=== PATIENT | male | born 1950 | race Caucasian/White ===

== ENCOUNTER → 2017-03-07 | Outpatient (CLI) | payer OTHER ==
[~2017-03-07] MED LIST: ASA CHILDREN'S81 MG PO; BENADRYL-DPS25 MG PO; CARAFATE DPS1 GM PO; CEPACOL SORE T1 EACH PO; CLARITIN-D 121 EACH PO; COLACE-DPS100 MG PO; COUMADIN7.5 MG PO; COZAAR100 MG PO; CRESTOR20 MG PO; DULCOLAX-DPS5 MG PO; FISH OIL 1,0001 EACH PO; FISH OIL PO; FLEXERIL-DPS10 MG PO; HYDROCODON-ACE1 EAC4 PO; IMDUR DPS30 MG PO; ISORDIL DPS30 MG PO; ISOSORBIDE PO; LASIX DPS20 MG PO; LASIX20 M1 PO; LOPRESSOR DPS50 MG PO; LOPRESSOR100 MG PO; LORTAB 7.5-3251 EACH PO; LOVENOX DP40 MG/0.4 SQ; MAALOX DPS30 ML PO; MELOXICAM7.5 MG PO; METOPROLOL TART25 MG PO; MILK OF MAGNESI10 ML PO; MULTIVITAMINS1 EAC1 PO; NITROSTAT0.4 MG SL; OMEGA-3 DPS1000 MG PO; OXY IR DPS5 MG PO; PROTONIX40 MG PO; SENOKOT S1 TAB PO; SURFAK DPS240 MG PO; TUMS DPS500 MG PO; TYLENOL DPS325 MG PO; ULTRAM DPS50 MG PO; ZOCOR DPS40 MG PO; ZOFRAN4 MG PO
== END | disposition home or self-care (01) ==
LOC: RAD.S 14:22
DX: R10.11 Right upper quadrant pain (principal); N20.0 Calculus of kidney; K31.89 Other diseases of stomach and duodenum

== ENCOUNTER 2017-03-09 20:00 | Observation (INO) | payer OTHER ==
[~2017-03-09] VITALS: Ht 175.3 cm; Wt 82.6 kg
--- NOTE | ~2017-03-09 | CO ---
ADMIT: 03/09/2017 RM/LOC: 629 [facility] MR#: [id number] 2620 [facility] [address] [place] [id number] LINDSAY OLSON [address] [place] [address] Consultation SEX: M AGE: 66 : 1950 DATE OF CONSULTATION: 03/10/2017 ATTENDING PHYSICIAN: Lindsay Jennings CONSULTING PHYSICIAN: Steffen Hannon MD ADDENDUM: This patient has complaints of epigastric pain that has been going on for about a week ago, it got increasingly severe. He has not really been taking anything that would cause ulcers or gastritis. He has been uncomfortable enough, so he presented to the ER and was admitted last night. No nausea or vomiting. He is eating and hungry. He did have a CT scan, which really did not show anything abnormal. I believe the ultrasound and HIDA scan looked normal also. On exam, his abdomen is quite tender in the epigastric region. He is not terribly distended. No guarding or rebound at this time. ASSESSMENT: Epigastric pain that radiates through into his back. PLAN: I have recommended proceeding with EGD. His INR today is 2.3, so we will wait for that to reverse. We might be able to scope in tomorrow versus Friday depending on what his INR ends up doing. I went through risks, benefits of the procedure with the patient. He understands and agrees to proceed. Steffen Hannon MD/ simone JOB #: [id number] CC: Lindsay Jennings, Attending Physician Lindsay Jennings, Family Physician
[~2017-03-09 20:00] MED LIST changes: -CARAFATE DPS1 GM PO; -CLARITIN-D 121 EACH PO; -COLACE-DPS100 MG PO; -HYDROCODON-ACE1 EAC4 PO; -ISORDIL DPS30 MG PO; -LASIX DPS20 MG PO; -METOPROLOL TART25 MG PO; -NITROSTAT0.4 MG SL; -OMEGA-3 DPS1000 MG PO; -PROTONIX40 MG PO; -ZOCOR DPS40 MG PO
--- NOTE | 2017-03-10 03:19 | ER ---
ADMIT: 03/09/2017 RM/LOC: 629 [facility] MR#: [id number] 2620 [facility] [address] [place], [place] [address] KENNY OLSON [address] [place] [address] Emergency Room Report SEX: M AGE: 66 : 1950 DATE: 03/09/2017 CHIEF COMPLAINT: Abdominal pain. HISTORY OF PRESENT ILLNESS: The patient is a 66-year-old male, complaining of 6-day history of escalating right upper quadrant flank pain associated with nausea and loss of appetite. Denies any exacerbating or relieving maneuvers. Had CT abdomen and pelvis on March 07, which showed no acute findings, specifically normal gallbladder. PAST MEDICAL HISTORY: ILLNESSES: Paroxysmal atrial fib CHADS2, CHF, coronary artery disease, status post PCI stent in 1997 first obtuse marginal, ventricular tachycardia and SVT status post ICD, biventricular pacemaker in 2003 and biventricular pacemaker in 2008, CHF, non ST elevated [place], hypertension, DJD, asthma, GERD, kidney stones, and pneumonia. OPERATIONS: Heart cath in 2003, PCI stent in 1997, first obtuse marginal, ICD in 2003, biventricular sequential pacemaker in 2008, left total knee arthroplasty, previous knee and foot surgeries. ALLERGIES: CODEINE AND IBUPROFEN. MEDICATIONS: Please see nurse's MAR. SOCIAL HISTORY: . Nonsmoker. Nondrinker. No illicit drugs. FAMILY HISTORY: Negative per chart review. REVIEW OF SYSTEMS: A 12-point review of systems negative for all other systems, illnesses, or operations except as outlined above. PHYSICAL EXAMINATION: VITAL SIGNS: Temp is 98.6, pulse 92, respirations 16, BP 130/70, SaO2 95%, and weight 85 kilos. GENERAL: Nontoxic and nondiaphoretic. Moderate distress. HEENT: Normocephalic. No evidence of epistaxis, rhinorrhea, or otorrhea. NECK: Supple without lymphadenopathy or thyromegaly. CHEST: Clear. Breath sounds equal without rales, rhonchi, or wheeze. HEART: Regular rate and rhythm without murmur, gallop, or edema. ABDOMEN: Tender right upper quadrant without mass or megaly. Bowel sounds hypoactive. EXTREMITIES: No evidence of Homans sign, synovitis, or dermatitis. NEURO: EOMI, PERRLA. No evidence of drift, dysarthria, or ataxia. Gait normal. Mental Status: Alert oriented cooperative without delusions, hallucinations, or abnormal thought content. ADMIT: 03/09/2017 RM/LOC: 629 [facility] MR#: [id number] [address] [place] [id number] [facility] [address] [place] [address] Emergency Room Report SEX: M AGE: 66 : 1950 MEDICAL DECISION MAKING: CT abdomen and pelvis reviewed, no inflammatory or abnormalities grossly noted. Ultrasound tonight showed positive Serrato sign, otherwise negative. CBC; hemoglobin 13.4 and normal WBC. CRP less than 0.29, lipase 187, BNP 120. UA negative. The patient was given Zofran, Toradol, Dilaudid, and Protonix with improvement. Discussed findings with Dr. Blanchard, who agreed to admit. Gave orders to nursing staff. DIAGNOSIS: Biliary colic. Suspect nonfunctioning gallbladder. RECOMMENDATION: Admit to inpatient Med/Surg for Dr. Jennings. Recommend HIDA scan and possible EGD if negative. Gato Lopez MD/ modl JOB #: [id number] CC: Kenny Jennings MD, Attending Physician Kenny Jennings MD, Family Physician
--- NOTE | 2017-03-12 08:09 | HP ---
ADMIT: 03/09/2017 RM/LOC: 629 [facility] MR#: [id number] [facility]#: [id number] [address] [address] LINDSAY [address]LSON[address] [place] [address] History and Physical SEX: M AGE: 66 : 1950 DATE OF SERVICE: CHIEF COMPLAINT: Five to six day history of worsening right upper quadrant pain with nausea, no fever. HISTORY OF PRESENT ILLNESS: Mr. Olson is a 66-year-old male with multiple medical problems outlined below. He had been seen in our office on about March [address] Salinas with a complaint of increasing right upper quadrant pain that would radiate around to his right flank and back. This is associated with nausea, but no vomiting. He had a markedly diminished appetite. CT scan of his abdomen and pelvis was done on March 07, which showed no acute finding and specifically no findings in the gallbladder. His symptoms increased and he came to the emergency room late yesterday afternoon where his lab evaluation was relatively benign, but he was obviously tender in his right upper quadrant. The ultrasound of his abdomen done in the ER showed "a positive Serrato sign." He had a normal white count, C-reactive protein, and lipase and his proBNP was 120. He was treated with fluids and then admitted for further evaluation and treatment. PAST MEDICAL HISTORY: 1. Includes paroxysmal atrial fibrillation, status post ablation and pacemaker placement, coronary artery disease-status post previous stenting, systolic congestive heart failure-controlled. 2. Systemic hypertension. 3. Degenerative joint disease. 4. History of "asthma"-well controlled. 5. Chronic gastroesophageal reflux disease. 6. History of renal lithiasis. PAST SURGICAL HISTORY: His previous operations include colonoscopy, EGDs, and heart cath and his biventricular pacemaker placement with battery replacement. He has had a previous left total knee arthroplasty and previous orthopedic procedures on his right knee and feet. ALLERGIES: INCLUDE IBUPROFEN AND CODEINE. CURRENT MEDICATIONS: Include: 1. Aspirin 81 mg b.i.d. 2. Metoprolol 75 mg b.i.d. 3. Fish oil 1000 mg b.i.d. 4. Furosemide 20 mg daily. 5. Isosorbide 30 mg daily. 6. Warfarin 7.5 mg daily. 7. Simvastatin 40 mg at bedtime. 8. Claritin-D 1 q.a.m. SOCIAL HISTORY: Reveals he is a nonsmoker. He has a history of chewing tobacco. He drinks alcohol rarely. 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 He and his live independently in their home here in [place]. ADMIT: 03/09/2017 RM/LOC: 629 [facility] MR#: [id number] [address] [address] [address] [place] [address] History and Physical SEX: M AGE: 66 : 1950 FAMILY HISTORY: Positive for heart disease. REVIEW OF SYSTEMS: His ten-point review of systems is otherwise negative. He has actually felt well until the onset of his current symptoms. PHYSICAL EXAMINATION: GENERAL: He is alert, afebrile, in no acute distress now. VITAL SIGNS: Since admission have been normal/chey stable with blood pressures in the 115 systolic range, a paced pulse of 70, and he has been afebrile. HEENT: Negative. NECK: Reasonably supple. I detect no bruits. LUNGS: Clear to auscultation. CARDIAC EXAM: Shows a regular rhythm without apparent murmur. ABDOMEN: Shows positive bowel sounds. He is minimally distended. He is tender to palpation in the right upper quadrant. I do not detect any masses or organomegaly. GENITAL/RECTAL EXAM: Not done EXTREMITIES: His lower extremities show no edema. He has diminished but palpable pulses in his feet. NEUROLOGIC: Normal within his ability to test. IMPRESSION: 1. Persistent/increasing right upper quadrant pain-suspect nonfunctioning gallbladder. 2. History of paroxysmal atrial fibrillation, status post ablation and pacemaker placement. 3. Coronary artery disease-status post stenting. 4. Congestive heart ndysotw-goqwgpjq-njdudfmbxk. 5. Systemic hypertension. 6. Degenerative joint disease. 7. Asthma. 8. Chronic gastroesophageal reflux disease. 9. History of kidney stones. 10.Status post operations outlined above. PLAN: He has been admitted. HIDA scan has been ordered. We will get surgical consultation and proceed from those findings. Lindsay Jennings MD/ simone JOB #: [id number] CC: Lindsay Jennings, Attending Physician Lindsay Jennings, Family Physician
[2017-03-13] MEDS ORDERED: ASA CHILDREN'S81 MG PO (17:43)
[2017-03-13] MEDS ORDERED: OMEGA-3 DPS1000 MG PO (17:43)
[2017-03-13] MEDS ORDERED: COUMADIN7.5 MG PO (17:44)
[2017-03-13] MEDS ORDERED: ZOCOR DPS40 MG PO (17:44)
[2017-03-13] MEDS ORDERED: LASIX DPS20 MG PO (17:44)
[2017-03-13] MEDS ORDERED: ISORDIL DPS30 MG PO (17:44)
[2017-03-13] MEDS ORDERED: METOPROLOL TART25 MG PO (17:44)
[2017-03-13] MEDS ORDERED: CLARITIN-D 121 EACH PO (17:45)
[2017-03-13] MEDS ORDERED: PROTONIX40 MG PO (17:45)
[2017-03-13] MEDS ORDERED: CARAFATE DPS1 GM PO (17:45)
[2017-03-13] MEDS ORDERED: BENADRYL-DPS25 MG PO (17:46)
[2017-03-13] MEDS ORDERED: HYDROCODON-ACE1 EAC4 PO (17:51)
[2017-03-13] MEDS ORDERED: COLACE-DPS100 MG PO (17:51)
[2017-03-13] MEDS ORDERED: MAALOX DPS30 ML PO (17:52)
[2017-03-13] MEDS ORDERED: TYLENOL DPS325 MG PO (17:52)
[2017-03-13] MEDS ORDERED: ULTRAM DPS50 MG PO (18:06)
[2017-03-13] MEDS ORDERED: NITROSTAT0.4 MG SL (18:06)
--- NOTE | 2017-03-17 07:31 | DS ---
ADMIT: 03/09/2017 RM/LOC: 629 [facility] MR#: [id number] [address] [place] [place], [place] [address] LINDSAY OLSON [address] [place] [address] General Discharge Summary SEX: M AGE: 66 : 1950 ADMISSION DATE: 03/09/2017 DISCHARGE DATE: 03/12/2017 FINAL DIAGNOSES: 1. Persistent epigastric pain with radiation to the back secondary to antral ulcerations. 2. Antral ulcerations by EGD. 3. Known paroxysmal atrial fibrillation - status post ablation/pacemaker placement. 4. Coronary artery disease, status post previous stenting. 5. Stable congestive heart failure - systolic. 6. Systemic hypertension. 7. Degenerative joint disease. 8. History of asthma - well controlled. 9. Chronic gastroesophageal reflux disease. 10.History of renal lithiasis. 11.Status post colonoscopy, EGDs, heart catheterization, pacemaker placement, left total knee and right knee and foot orthopedic procedures. BRIEF HISTORY: This 66-year-old, male, had been seen in our office about March 06 or with complaints of increasing right upper quadrant pain that would radiate around his right flank and back. This was associated with nausea, but no vomiting. CT of his abdomen and pelvis was done on March 07 showing no acute findings specifically no findings in the gallbladder. His symptoms increasing. He came to the emergency room the night of admission, where lab workup was relatively benign, but he had an obviously tender right upper quadrant. An ultrasound of his abdomen done in the ER showed "a positive Serrato sign," but a negative gallbladder evaluation. He was admitted for further evaluation and treatment. SIGNIFICANT LAB AND X-RAY: On admission, CBC showed hemoglobin of 13 g with essentially normal indices, but for an MCHC of 31.7 pg (normal 26 to 31). White count of 6600. Serial CBCs were followed and remained essentially unchanged. Serial pro times were monitored - on initial presentation, his INR was 2.30, and by the morning of 03/11 was down to 1.21. On 03/12, it was 1.03. Admitting urinalysis was within normal limits. On admission, CMP was normal as was his lipase. On admission, lactic acid was 1.1 mmol/L. Serial chemistries were followed and by 03/12, his BMP was normal. On 03/09, C-reactive protein was less than 0.29 mg/dL and repeat on 03/11 was 0.91 mg/dL. ADMIT: 03/09/2017 RM/LOC: 629 [facility] MR#: [id number] [address] [address] [facility] [place] [address] General Discharge Summary SEX: M AGE: 66 : 1950 The patient was given 1 unit of fresh frozen plasma. On 03/11, CTA of the abdomen and pelvis with mesenteric vessels was read as "impression: 1. Interval development of colonic wall thickening, likely representing colitis. 2. Patent mesenteric vessels without evidence of ischemic colitis.". On 03/10, HIDA scan showed "normal ejection fraction." On 03/09, ultrasound of the gallbladder was read as "negative study." On 03/11, he underwent EGD with Dr. Hannon with the findings of antral ulceration. HOSPITAL COURSE: The patient was admitted through the emergency room, and the imaging and laboratory studies outlined above were begun. 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 Protonix 40 mg IV q.12 hours was initiated along with Zofran 8 mg IV q.4 hours p.r.n., normal saline was run at 50 mL/hour. He was continued on most of his home medications. Surgical consultation was requested. The morning of 03/10, he got 10 mg of vitamin K p.o. and 1 unit fresh frozen plasma. Following surgical evaluation and his initial imaging, consent for EGD was signed. By 03/11, he was still having some epigastric pain with nausea, but no vomiting. He was wharf tender head in the right upper quadrant right epigastrium. He was seen preoperatively by Anesthesia. On 03/11, he underwent his EGD with the findings of antral ulcer. Subsequently, he was placed back on his usual home medications. By 03/12, he was feeling "a bit better." Mud Boss consult was requested concerning dietary management of his antral ulcer. He was started on Carafate 1 g q.i.d. a.c. and bedtime. His IV Dilaudid was discontinued. He was allowed hydrocodone 5/325 for pain and tramadol 50 mg q.6 hours p.r.n., and his diet was increased as tolerated. Later that afternoon, it was felt safe to dismiss him to home. On dismissal, arrangements made for him to be seen in my office in 7 to 10 days. At which point, we will need a CBC, BMP, and INR. 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 Records were faxed to my office for followup. Arrangements were made for him to seen by Dr. Hannon in about a week about his biopsy results. DISCHARGE MEDICATIONS: On dismissal, his medications included: 1. Carafate 1 g q.i.d. a.c. and bedtime. ADMIT: 03/09/2017 RM/LOC: 629 [facility] MR#: [id number] [address] [place] [phone] [address]Y OLS[address] [place] [address] General Discharge Summary SEX: M AGE: 66 : 1950 2. Coumadin 7.5 mg daily. 3. Imdur 30 mg daily. 4. Lopressor 75 mg b.i.d. 5. Protonix 40 mg b.i.d. 6. Aspirin 81 mg daily. 7. Metoprolol 75 mg b.i.d. 8. Fish oil 1 tab b.i.d. 9. Furosemide 20 mg daily. 10.Isosorbide 30 mg daily. 11.Simvastatin 40 mg daily. 12.Claritin-D 1 daily. PRN orders for: 1. Benadryl. 2. Colace. 3. Hydrocodone. 4. Maalox. 5. Tylenol. 6. Ultram. 7. Nitrostat. CONDITION ON DISCHARGE: Stable on the above treatment. FINAL DISPOSITION: As noted. PROGNOSIS: Good. Lindsay Jennings MD/ simone JOB #: [id number] CC: Lindsay Jennings MD, Attending Physician Lindsay Jennings MD, Family Physician . [facility] Steffen Hannon MD
--- NOTE | 2017-03-25 07:06 | CO ---
ADMIT: 03/09/2017 RM/LOC: 629 [facility] MR#: [id number] 2620 [facility] [address] [place], [place] [address] LINDSAY OLSON [address] [place] [address] Consultation SEX: M AGE: 66 : 1950 Corrected: 03/10/2017 1403 ajf DATE OF CONSULTATION: 03/10/2017 ATTENDING PHYSICIAN: Lindsay Jennings CONSULTING PHYSICIAN: Steffen Hannon MD REASON FOR CONSULTATION: Abdominal pain. HISTORY OF PRESENT ILLNESS: Lindsay is a very pleasant 66-year-old male, who states right upper quadrant abdominal pain for 1 week. It has been getting progressively worse since then. He denies any prior episodes. His pain is in his right upper quadrant that radiates to the epigastric region around to his right flank and goes to his back. He does state some mild nausea but denies any emesis. His last bowel movement was yesterday and denies any bowel changes. His pain is not postprandial. He states some occasional chills but denies any fevers. PAST MEDICAL HISTORY: Significant for coronary artery disease, CHF, hypertension, asthma, GERD, and osteoarthritis. PAST SURGICAL HISTORY: 1. Heart catheterization x1 with stent. 2. ICD and pacemaker placement. 3. Right knee scope and left knee arthroplasty. 4. Bilateral carpal tunnel. ALLERGIES: IBUPROFEN AND CODEINE. MEDICATIONS: Documented in chart. FAMILY HISTORY: Noncontributory. SOCIAL HISTORY: The patient is a rare social drinker but denies any tobacco or illicit drug use. REVIEW OF SYSTEMS: CONSTITUTIONAL: The patient denies any fever, chills, or night sweats, but gets cool every now and then. The rest of comprehensive 10-point review of systems was performed, and all other systems are negative. PHYSICAL EXAMINATION: GENERAL: The patient is in no acute distress. He is alert and oriented. HEENT: Head is normocephalic and atraumatic. EOMS are intact. Conjunctivae are free of icterus, erythema, or pallor. Pinnae are free of deformities. Nose in midline. No tracheal deviation. NECK: Supple. ADMIT: 03/09/2017 RM/LOC: 629 [facility] MR#: [id number] [address] [address] DASHALINDSAY MCALLISTER [facility] [place] [address] Consultation SEX: M AGE: 66 : 1950 SKIN: Negative for jaundice, clubbing, edema, pallor, or cyanosis. LUNGS: Normal respiratory effort. HEART: Distal pulses intact. Regular rate and rhythm. ABDOMEN: Soft, nondistended, and tender in epigastric and right upper quadrants, exquisite tenderness. NEUROLOGIC: Grossly intact. LABORATORY DATA: INR 2.3. CMP: Alkaline phosphatase 71, AST 25, ALT 29, total bilirubin is 0.6, white blood cell count 6.6. DIAGNOSTIC IMAGIN. Ultrasound of gallbladder revealed gallbladder normal appearance and a common bile duct of 6 mm. Negative study. 2. HIDA scan revealed prompt uptake of the radiotracer throughout the liver, and the gallbladder was visualized for 60 minutes. Ejection fraction 69.4%. ASSESSMENT: Persistent abdominal pain. PLAN: The plan right now is to have the patient undergo EGD performed by Dr. Hannon. However, his INR is elevated, so we will need to lower this before endoscopy. I will let the patient know, and we will go from there. I discussed the risks, alternatives, benefits, and complications of endoscopy with the patient to which he is in agreement with this plan and had all his questions answered and would like to proceed. Thank for the consultation of this patient. NICOLE Pate / Steffen Hannon MD / simone JOB #: [id number] CC: Lindsay Jennings, Attending Physician Lindsay Jennings, Family Physician Corrected: 03/10/2017 1403 ajf
--- NOTE | 2017-03-25 07:06 | OR ---
ADMIT: 03/09/2017 RM/LOC: 629 [id number] [facility] [id number] [address] [address] DASHALINDSAY MCALLISTER [address] [place] [address] Operative/Delivery Room Report SEX: M AGE: 66 : 1950 SURGERY DATE: 03/11/2017 SURGEON: Steffen Hannon MD PREOPERATIVE DIAGNOSIS: Epigastric pain. POSTOPERATIVE DIAGNOSIS: Antral ulceration. PROCEDURE PERFORMED: EGD with biopsies. ANESTHESIA: Sedation. ESTIMATED BLOOD LOSS: None. DESCRIPTION OF PROCEDURE: After appropriate informed consent was obtained, the patient was brought to the endoscopy suite. IV sedation was provided. A well-lubricated endoscope was introduced and passed down the esophagus. The proximal and mid esophagus appeared normal. Distal esophagus showed wide open GE junction. No evidence of any significant reflux changes or damage there. The scope was advanced in the stomach. The gastric mucosa and the fundus appeared mildly inflamed. Gastric antrum did have a small punctate ulceration in the pyloric channel. No significant bleeding or problems there otherwise. Pylorus was intubated. Duodenal bulb and second and third portions of the duodenum appeared normal. Several biopsies taken of the duodenal mucosa. The scope was then pulled back into the stomach, retroflexed, revealing no hiatal hernia from below. Some mild proximal gastritis. Several biopsies taken of the antrum, in particular the area of ulceration in the pyloric channel, and also biopsies taken of the fundus. Stomach was then deflated, and the scope withdrawn without apparent complications. The patient tolerated the procedure well and was taken to the recovery room in stable condition. Steffen Hannon MD/ simone JOB #: [id number] CC: Lindsay Jennings, Attending Physician Lindsay Jennings, Family Physician Lindsay Jennings,
== END 2017-03-12 13:15 | disposition home or self-care (01) ==
LOC: ER 20:00 → 6PED 22:35
PROVIDERS: ADMIT Family Medicine
PROC: 0DB98ZX Excision of Duodenum, Via Natural or Artificial Opening Endoscopic, Diagnostic (ICD-10-PCS; principal; 2017-03-11)
PROC: 0DB68ZX Excision of Stomach, Via Natural or Artificial Opening Endoscopic, Diagnostic (ICD-10-PCS; principal; 2017-03-11)
DX: K29.50 Unspecified chronic gastritis without bleeding (principal); I48.0 Paroxysmal atrial fibrillation; I25.10 Atherosclerotic heart disease of native coronary artery without angina pectoris; I11.0 Hypertensive heart disease with heart failure; I50.20 Unspecified systolic (congestive) heart failure; J45.909 Unspecified asthma, uncomplicated; K21.9 Gastro-esophageal reflux disease without esophagitis; Z88.5 Allergy status to narcotic agent; Z88.8 Allergy status to other drugs, medicaments and biological substances; Z98.890 Other specified postprocedural states; Z87.442 Personal history of urinary calculi; Z79.01 Long term (current) use of anticoagulants; Z79.899 Other long term (current) drug therapy; Z87.891 Personal history of nicotine dependence; Z95.0 Presence of cardiac pacemaker; Z95.5 Presence of coronary angioplasty implant and graft; Z96.652 Presence of left artificial knee joint